=== PATIENT | male | born 1950 | race Caucasian/White ===

== ENCOUNTER 2021-11-26 07:55 | Day surgery (SDC) | payer MEDICARE, OTHER ==
[2021-11-25 12:54] LABS: BASOPHILS # (AUTO) 0.1 X10'3 (0-0.2); BASOPHILS % (AUTO) 0.9 % (0-1); EOSINOPHILS # (AUTO) 0.6 X10'3 (0-0.9); EOSINOPHILS % (AUTO) 8.4 % (0-6); HEMATOCRIT 36.7 % (42.0-52.0); HEMOGLOBIN 12.4 g/dl (14.0-17.9); LYMPHOCYTES # (AUTO) 2.4 X10'3 (1.1-4.8); LYMPHOCYTES % (AUTO) 31.3 % (21-51); MEAN CORPUSCULAR HEMOGLOBIN 29.8 PG (27.0-31.0); MEAN CORPUSCULAR HGB CONC 33.8 g/dL (33.0-36.5); MEAN CORPUSCULAR VOLUME 88.1 FL (78-98); MEAN PLATELET VOLUME 7.5 FL (7.4-10.4); MONOCYTES # (AUTO) 0.4 X10'3 (0-0.9); MONOCYTES % (AUTO) 5.6 % (2-12); NEUTROPHILS # (AUTO) 4.1 X10'3 (1.8-7.7); NEUTROPHILS % (AUTO) 53.8 % (42-75); PLATELET COUNT 179 X10'3 (140-440); RED BLOOD COUNT 4.16 X10'6 (4.70-6.10); WHITE BLOOD COUNT 7.7 X10'3 (4.5-11.0)
[2021-11-25 13:03] LABS: APTT 27 SECONDS (22-32)
[2021-11-25 13:06] LABS: ALANINE AMINOTRANSFERASE 17 U/L (12-78); ALBUMIN 4.2 G/DL (3.4-5.0); ALBUMIN/GLOBULIN RATIO 1.2 (1.1-1.5); ALKALINE PHOSPHATASE 90 IU/L (46-116); ANION GAP 9 (8-16); ASPARTATE AMINO TRANSFERASE 25 U/L (10-37); BILIRUBIN,TOTAL 0.4 MG/DL (0.1-1.0); BLOOD UREA NITROGEN 26 MG/DL (7-18); CALCIUM 9.2 MG/DL (8.5-10.1); CHLORIDE 103 MMOL/L (99-107); CREATININE 1.18 MG/DL (0.60-1.10); GLUCOSE 177 MG/DL (70-104); SODIUM 137 MMOL/L (135-145); TOTAL CARBON DIOXIDE 25.1 MMOL/L (24-32); TOTAL PROTEIN 7.7 G/DL (6.4-8.2); eGFR 61 ML/MIN
[2021-11-26] VITALS (11 sets, daily range): BP systolic 97–149; BP diastolic 51–79
[~2021-11-26] VITALS: Ht 170.2 cm; Wt 108.2 kg
[2021-11-26] MEDS ORDERED: normal saline 1,000 ML IV SCH (08:20)
[2021-11-26] MEDS ORDERED: insulin Lispro (HumaLOG) vial - multi-dose SQ SCH (08:20)
[2021-11-26] MEDS ORDERED: glucagon, human recombinant 1mg kit SUBCUT PRN (08:20)
[2021-11-26] MEDS ORDERED: dextrose 50%-water 50ml dispensing syringe IV PRN ×2 (08:20)
[2021-11-26] MEDS ORDERED: MESSAGE TO PHARMACY PO ONE (08:20)
[2021-11-26] MEDS ORDERED: nitroGLYCERIN 0.4mg SUBLingual tab SL PRN (08:20)
[2021-11-26] MEDS ORDERED: DEXTROSE 15 GM of carb/4 tabs (each vial/BOTTLE has 4 tablets) PO PRN ×2 (08:20)
[2021-11-26] MEDS ORDERED: diphenhydrAMINE 25mg capsule PO PRN (08:20)
[2021-11-26] MEDS ORDERED: LORazepam 0.5 MG tablet PO PRN (08:20)
[2021-11-26] MEDS ORDERED: METF-437 PO (08:32)
[2021-11-26] MEDS ORDERED: OMEP20CA16 PO (08:32)
[2021-11-26] MEDS ORDERED: DILT180C87 PO (08:32)
[2021-11-26] MEDS ORDERED: IRBE150T24 PO (08:32)
[2021-11-26] MEDS ORDERED: GLIP5TAB13 PO (08:32)
[2021-11-26] MEDS ORDERED: ATOR40TA72 PO (08:32)
[2021-11-26] MEDS ORDERED: FLO0.4C (08:32)
[2021-11-26] MEDS ORDERED: ALBU8HFA PO (08:35)
[2021-11-26] MEDS ORDERED: PREN-16 (08:35)
[2021-11-26] MEDS ORDERED: ASPI-1071 PO (08:35)
[2021-11-26] MEDS ORDERED: [UNRECOGNIZED DRUG - REMARK] PO (08:35)
[2021-11-26] MEDS ORDERED: MAGN250T11 PO (08:35)
[2021-11-26] MEDS ORDERED: TRAZ-251 PO (08:36)
[2021-11-26 09:44] LABS: HEMOGLOBIN A1C 6.3 % (4.5-6.2)
[2021-11-26] MEDS ORDERED: iohexol 350 MG/ML 50ML vial IV ONE ×2 (12:31→13:36)
[2021-11-26] MEDS ORDERED: fentaNYL/PF 50MCG/1 ML 2ML syringe ONE (12:31)
[2021-11-26] MEDS ORDERED: midazolam 1 mg/ML 2ml injection ONE ×2 (12:31→13:21)
[2021-11-26] MEDS ORDERED: iohexol 350MG/ML 100ml bottle IV ONE (12:31)
[2021-11-26] MEDS ORDERED: LIDOCAINE 1% w/preservative (10 MG/ML) inj. 10mL VIAL ONE ×2 (12:31→13:41)
[2021-11-26] MEDS ORDERED: HYDROmorphone 1 mg/ml syringe ONE (13:47)
[2021-11-26] MEDS ORDERED: HYDROcodone/acetaminophen 5mg/325mg tablet PO PRN (17:40)
[2021-11-26] MEDS ORDERED: HYDROcodone/acetaminophen 10/325mg tab PO PRN (17:40)
[2021-11-26] MEDS ORDERED: insulin glargine (Lantus) pen - multi-dose SQ SCH (21:00)
== END 2021-11-26 20:00 | disposition home or self-care (01) ==
LOC: SSTAY O 07:55
PROVIDERS: ATTEND Internal Medicine Cardiovascular Disease
DX: R94.39 Abnormal result of other cardiovascular function study (principal); I25.10 Atherosclerotic heart disease of native coronary artery without angina pectoris; I10 Essential (primary) hypertension; J44.9 Chronic obstructive pulmonary disease, unspecified; E11.9 Type 2 diabetes mellitus without complications; E78.5 Hyperlipidemia, unspecified; I35.0 Nonrheumatic aortic (valve) stenosis; Z79.899 Other long term (current) drug therapy; Z79.01 Long term (current) use of anticoagulants
CPT/HCPCS: 36415; 71046; 80053; 82948; 83036; 85025; 85610; 85730; 93005; 93460; 93567; 99152; 99153; C1751; C1760; C1769; J1170; J1644; J1815; J2250; J3010; Q0163; Q9967; A4620; A6258